=== PATIENT | female | born 1990 ===

== ENCOUNTER 2016-12-23 13:38 | Emergency (ER) | payer OTHER ==
[2016-12-23 14:14] VITALS: BP 126/66
--- NOTE | 2016-12-23 14:57 | UC ---
Syncope/New Syncope HPI - HPI Summary HPI Summary: near syncope x 3 episodes since one week ago - History Of Current Complaint Chief Complaint: UCDizziness Stated Complaint: FAINTNESS NAUSEA SHAKY Time Seen by Provider: 12/23/16 13:57 Hx Obtained From: Patient Hx Last Menstrual Period: 12/14/16 ?: No Onset/Duration: Sudden Onset, Lasting Minutes - 30 sec, Resolved Activity At Onset: Unknown Timing: Frequency Of Episodes - 3 x since last week Frequency: Episodes x___ - 3, Episodes Lasting ____ (in Mins/Days/Weeks/Years) - 30 sec Context: Witnessed Associated Head Trauma: No Aggravating Factor(s): Nothing Alleviating Factor(s): Nothing Associated Signs And Symptoms: Positive: Lightheadedness, Weakness. Negative: AMS, Chest Pain, Decreased Oral Intake, Diarrhea, Diaphoresis, Dizzy, GI Blood Loss, Head Trauma (Remote), Head Trauma (Recent), Headache, Numbness, Pain, Palpitations, Seizure, Shortness Of Breath, Vomiting - Allergies/Home Medications Allergies/Adverse Reactions: Allergies Allergy/AdvReac Type Severity Reaction Status Date / Time No Known Allergies Allergy Verified 12/23/16 13:58 Home Medications: Home Medications Norethin Acet & Estrad-Fe [Microgestin Fe 1-20 mg-Mcg] 1 tab PO DAILY 12/23/16 [ History Confirmed 12/23/16] PMH/Surg Hx/FS Hx/Imm Hx Previously Healthy: Yes - Surgical History Surgical History: Yes Surgery Procedure, Year, and Place: 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 THEETH EXTRACTIONS - Family History Known Family History: Negative: Diabetes - Social History Alcohol Use: Weekly Substance Use Type: None Smoking Status (MU): Never Smoked Tobacco Review of Systems Constitutional: Negative Skin: Negative Eyes: Negative ENT: Negative Respiratory: Negative Cardiovascular: Negative Gastrointestinal: Negative Genitourinary: Negative Motor: Negative Neurovascular: Negative Musculoskeletal: Negative Neurological: Weakness Psychological: Negative All Other Systems Reviewed And Are Negative: Yes Physical Exam Triage Information Reviewed: Yes Appearance: Well-Appearing, No Pain Distress, Well-Nourished Vital Signs: Initial Vital Signs Temp 99.2 F 12/23/16 13:59 Pulse 86 12/23/16 13:59 Resp 20 12/23/16 13:59 BP 116/77 12/23/16 13:59 Pulse Ox 99 07/20/17 13:59 Vital Signs Reviewed: Yes Eyes: Positive: Conjunctiva Clear ENT: Positive: Normal ENT inspection, Hearing grossly normal, Pharynx normal Neck: Positive: Supple, Nontender, No Lymphadenopathy Respiratory: Positive: Chest non-tender, Lungs clear, Normal breath sounds Cardiovascular: Positive: RRR, No Murmur, Pulses Normal Abdominal Exam: Normal Abdomen Description: Positive: Nontender, Soft. Negative: CVA Tenderness (R), CVA Tenderness (L), Distended, Guarding Bowel Sounds: Positive: Present Musculoskeletal Exam: Normal Musculoskeletal: Positive: Strength Intact, ROM Intact, No Edema Neurological Exam: Normal Neurological: Positive: Alert Psychological Exam: Normal Skin Exam: Normal Syncope Course/Dx - Differential Dx/Diagnosis Provider Diagnoses: near syncope Discharge - Discharge Plan Condition: Stable Disposition: HOME Discharge Disposition Comment: near syncope Patient Education Materials: Near Syncope (ED) Additional Instructions: follow up with your pcp in one week
[2016-12-23 18:50] LABS: Hematocrit 42 % (35-47); Hemoglobin 14.4 g/dl (12.0-16.0); Mean Corpuscular HGB Conc 34 g/dl (31-36); Mean Corpuscular Hemoglobin 32 pg (27-31); Mean Corpuscular Volume 95 fL (80-97); Mean Platelet Volume 8 um3 (7.4-10.4); Red Blood Count 4.49 10^6/ul (4.0-5.4); Red Cell Distribution Width 12 % (10.5-15); White Blood Count 9.8 10^3/ul (3.5-10.8)
[2016-12-23 19:18] LABS: Albumin 4.2 g/dL (3.2-5.2); Calcium 9.5 mg/dL (8.6-10.3); EGFR African American 96.6 (>60); EGFR Non-African American 75.1 (>60); Globulin 2.7 g/dL (2-4); Potassium 4.1 mmol/L (3.5-5.0); Total Bilirubin 0.7 mg/dL (0.2-1.0); Total Protein 6.9 g/dL (6.4-8.9)
[2016-12-23 19:28] LABS: TSH (Thyroid Stimulating Horm) 3.06 mcIU/mL (0.34-5.60)
--- NOTE | 2016-12-24 07:53 | ED ---
Progress - Progress Note Progress Note: cbc normal. Course/Dx - Diagnoses Provider Diagnoses: Dizziness
== END 2016-12-23 15:10 | disposition home or self-care (01) ==
LOC: UCCORT 13:38
DX: R55 Syncope and collapse (principal); R53.1 Weakness; Z32.02 Encounter for pregnancy test, result negative
CPT/HCPCS: 36415; 80053; 81003; 84443; 84702; 85025; 87086; 93005; 99202; G0463